=== PATIENT | female | born 1960 | race Caucasian/White ===

== ENCOUNTER 2017-10-06 21:59 | Emergency (ER) | payer MEDICAID, OTHER ==
[~2017-10-06] VITALS: Ht 154.9 cm; Wt 78.0 kg
[2017-10-07] MEDS ORDERED: TETANUS, DIPHTHERIA, PERTUSSIS VAC/PF 0.5ML (>7YR OLD) IM ONE (01:15)
[2017-10-07] MEDS ORDERED: BACITRACIN ZINC OINT UDPKT TOP ONE (01:15)
[2017-10-07] MEDS ORDERED: ACETAMINOPHEN 500MG TABLET PO ONE (01:30)
[2017-10-07 02:13] VITALS: BP 138/79
== END 2017-10-07 02:41 | disposition home or self-care (01) ==
LOC: ER 21:59
DX: L02.415 Cutaneous abscess of right lower limb (principal)
CPT/HCPCS: 90471; 90715; 99283

== ENCOUNTER 2018-12-04 00:12 | Emergency (ER) | payer SELFPAY ==
[~2018-12-04] VITALS: Ht 154.9 cm; Wt 75.0 kg
[2018-12-04] MEDS ORDERED: LIDOCAINE HCL/PF 1% 10 MG/ML 5ML VIAL IJ ONE (03:15)
[2018-12-04] MEDS ORDERED: TRAMADOL 50MG TABLET PO ONE (05:00)
[2018-12-04 05:09] VITALS: BP 148/91
== END 2018-12-04 05:14 | disposition home or self-care (01) ==
LOC: ER 00:12
DX: L02.212 Cutaneous abscess of back [any part, except buttock and flank] (principal); Z90.710 Acquired absence of both cervix and uterus
CPT/HCPCS: 10060; 99283; J3490

== ENCOUNTER 2018-12-08 06:13 | Emergency (ER) | payer SELFPAY ==
[~2018-12-08] VITALS: Ht 154.9 cm; Wt 78.0 kg
[2018-12-08 07:08] VITALS: BP 144/79
== END 2018-12-08 07:09 | disposition home or self-care (01) ==
LOC: ER 06:53
DX: Z48.01 Encounter for change or removal of surgical wound dressing (principal); Z98.51 Tubal ligation status
CPT/HCPCS: 99281